=== PATIENT | male | born 1985 | race Caucasian/White ===

== ENCOUNTER → 2016-10-30 | Day surgery (SDC) | payer OTHER ==
[~2016-10-30] VITALS: Ht 182.9 cm; Wt 73.5 kg
[~2016-10-30] MED LIST: ACETAMINOPHEN 1000 MG/100 ML VIAL IV ONE; BACITRACIN TOP OINT 15 GM TUBE ONE; BUPIVACAINE/EPINEPHRINE 0.5% PF 30 ML VIAL ONE; DO NOT ADM ANY ANTICOAGULANT DRUGS XX PRN; LACTATED RINGER'S 1000 ML INJ 1,000 ML ONE; LIDOCAINE 1%/EPINEPHrine 1:100,000 SOLN 30 ML VIAL ONE; MIDAZOLAM HCL 2 MG/2 ML VIAL ONE; MORPHINE SULFATE 4 MG/ML INJ IV PRN; ONDANSETRON HCL 4 MG/2 ML VIAL IV PUSH ONE; ONDANSETRON HCL 4 MG/2 ML VIAL IV PUSH PRN; PROPOFOL 200 MG/20 ML AMP IV ONE; SODIUM BICARBONATE 8.4% INJ 50 ML ONE; fentaNYL CITRATE 250 MCG/5 ML AMP ONE; oxyCODONE/ACETAMINOPHEN 5 MG/325 MG TAB PO PRN
[2016-10-30 06:55] VITALS: BP 112/73; PULSE 54; RESP 20; TEMP 97.5; O2SAT 98
--- NOTE | 2016-10-30 09:18 | PD.OP ---
cc: Brandin Arenas MD Operative Report Date of Surgery: Oct 30, 2016 Preoperative Diagnosis: (1) Lipoma of flank Postoperative Diagnosis: (1) Lipoma of flank Procedure: Excision of left flank lipoma 3 cm Anesthesia: Mac Surgeon: Brandin Arenas [employer] Equipment Tender(s): Staff Operation and Findings: Estimated blood loss: Less than 5 cc Procedure: The patient was taken to the operating room and placed in the supine position and Mac anesthesia was induced. He was then placed in a lateral position with left side up. The left flank was prepped and draped in usual sterile fashion. Surgical timeout was performed to verify correct patient procedure and site. Local anesthetic was injected in the skin and subcutaneous tissue overlying an left flank lipoma. A 3 cm transverse incision was made. This underlying the dermis of the lipoma was encountered. It was dissected free circumferentially using electrocautery. It was then removed from the subcutaneous tissue. No more lipomatous tissue was identified. Hemostasis was achieved. The incision was closed with deep dermal interrupted 3-0 Vicryl and subcutaneous tissue to the 4-0 Monocryl as well as Dermabond. The patient tolerated procedure well was taken to PACU in stable condition. Brandin Arenas MD Oct 30, 2016 09:18
[2016-10-30 10:31] VITALS: BP 105/68; PULSE 52; RESP 17; TEMP 96.9; O2SAT 100
== END | disposition home or self-care (01) ==
LOC: HSDC 06:00
PROVIDERS: ATTEND Surgery
DX: D17.1 Benign lipomatous neoplasm of skin and subcutaneous tissue of trunk (principal); Z87.891 Personal history of nicotine dependence
CPT/HCPCS: 00300; 21931; 88304; J0131; J2250; J2405; J3010; J7120

== ENCOUNTER → 2016-11-15 | Day surgery (SDC) | payer OTHER ==
[~2016-11-15] VITALS: Ht 182.9 cm; Wt 73.7 kg
[~2016-11-15] MED LIST changes: +*ONDANSETRON 4 MG VIAL PERIprocedural Use ONLY ONE; +*morphine SULFATE 8 MG/ML PERIprocedure ONLY ONE; +ACETAMINOPHEN/HYDROcodone 325 MG/5 MG TAB ONE; -BACITRACIN TOP OINT 15 GM TUBE ONE; -BUPIVACAINE/EPINEPHRINE 0.5% PF 30 ML VIAL ONE; +CHLORHEXIDINE GLUCONATE 2 % 1 PACK (2 CLOTHS) TOPICAL PRN; +DO NOT ADM ANY ANTICOAGULANT DRUGS PRN; -DO NOT ADM ANY ANTICOAGULANT DRUGS XX PRN; +FAMOTIDINE 20 MG/2 ML VIAL ONE; +INSULIN HUMAN REGULAR 1,000 UNITS/10 ML VIAL SQ PRN; +LACTATED RINGER'S 1000 ML INJ 1,000 ML IV ONE; +LACTATED RINGER'S 1000 ML INJ 1,000 ML IV SCH; -LACTATED RINGER'S 1000 ML INJ 1,000 ML ONE; -LIDOCAINE 1%/EPINEPHrine 1:100,000 SOLN 30 ML VIAL ONE; +METOPROLOL TARTRATE 25 MG TAB PO PRN; -MORPHINE SULFATE 4 MG/ML INJ IV PRN; -ONDANSETRON HCL 4 MG/2 ML VIAL IV PUSH PRN; +POVIDONE IODINE 5% (ANTISEPSIS KIT) 4 APPLICATIONS EACH NARE PRN; -SODIUM BICARBONATE 8.4% INJ 50 ML ONE; +SODIUM CHLORID 0.9% 500 ML IV PRN; +ceFAZolin 1,000 MG/NS 100 ML IV SCH; -oxyCODONE/ACETAMINOPHEN 5 MG/325 MG TAB PO PRN
[2016-11-15 06:16] VITALS: BP 117/71; PULSE 53; RESP 18; TEMP 97.7; O2SAT 98
[2016-11-15] MEDS: BUPIVACAINE HCL PF 0.5% 30 ML VIAL ONE ×2 (08:10→08:44)
--- NOTE | 2016-11-15 08:59 | PD.OP ---
Operative Report Date of Surgery: Nov 15, 2016 Preoperative Diagnosis: Left hydrocele Postoperative Diagnosis: Same Procedure: Left hydrocelectomy Anesthesia: General LMA Surgeon: Bonifacio Cortez Smeller(s): González Resident Surgeon: None Operation and Findings: This is a 31-year-old male presented to the office with findings of a left hydrocele for the last 4-5 years. This was confirmed on ultrasound findings. Patient wishes to have this repaired. Risk and benefits were discussed preoperatively including bleeding and infection and he was willing to proceed. Patient was brought to the operating room and identified by myself as Alexis Merritt. He was placed on the operating table in the supine position, received preprocedure antibiotics, he was prepped and draped in usual sterile fashion and general LMA anesthesia was administered. 15 blade was used to make the opening transverse scrotal incision over the left hemiscrotum. Dartos fascia was then entered. The surrounding layers around the testicle were incised using the Bovie cautery. The testicle was then delivered from the scrotum. The sac around the testicle was then peeled back layer by layer until is down to the thinnest layer. The sac was then entered using the Metzenbaum scissors and the fluid was then drained from around the testicle. The surrounding sac was then cut and trimmed. In a bottleneck fashion, a 2-0 chromic suture was then used to sew the sac back on itself around the testicle. This is done in a running locking fashion. The scrotum was then irrigated and all bleeders were cauterized with the Bovie cautery. The testicle was then delivered back into the scrotum identifying the lateral sulcus. The dartos fascia was then closed with a running 3-0 Vicryl suture. The skin was then closed with a running 4-0 Vicryl suture. Scrotal support and fluffs were then placed. He was then extubated and transferred to recovery stable condition. He will follow-up in the office in 1 month. Bonifacio Crotez DO Nov 15, 2016 08:59
[2016-11-15 10:40] VITALS: BP 112/67; PULSE 62; RESP 16; TEMP 97.8; O2SAT 100
== END | disposition home or self-care (01) ==
LOC: HSDC 05:30
PROVIDERS: ATTEND Urology
DX: N43.3 Hydrocele, unspecified (principal)
CPT/HCPCS: 00920; 55040; 88302; J0131; J0690; J2250; J2270; J2405; J3010; J7120